=== PATIENT | male | born 1970 | race Caucasian/White ===

== ENCOUNTER 2024-07-31 22:04 | Emergency (ER) | payer OTHER ==
[~2024-07-31] VITALS: Ht 180.3 cm; Wt 81.6 kg
[2024-07-31 22:10] VITALS: TEMP 98.5
[2024-07-31 23:55] VITALS: PULSE 96; RESP 22; O2SAT 99
== END 2024-08-01 00:08 | disposition home or self-care (01) ==
LOC: ER 22:10
DX: M54.6 Pain in thoracic spine (principal); S63.591A Other specified sprain of right wrist, initial encounter; W17.89XA Other fall from one level to another, initial encounter; Y92.89 Other specified places as the place of occurrence of the external cause; K21.9 Gastro-esophageal reflux disease without esophagitis; F17.210 Nicotine dependence, cigarettes, uncomplicated
CPT/HCPCS: 99283

== ENCOUNTER 2024-09-25 17:06 | Emergency (ER) | payer OTHER ==
[~2024-09-25] VITALS: Ht 180.3 cm; Wt 81.6 kg
[2024-09-25 17:10] VITALS: PULSE 103; RESP 18; TEMP 98.3
[2024-09-25] MEDS ORDERED: ULTRAM 50MG50 MG PO (18:41)
[2024-09-25] MEDS: KETOROLAC TROMETHAMINE 60 MG/2 ML VIAL IM ONE (18:58)
[2024-09-25 19:32] VITALS: BP 148/108; PULSE 88; RESP 17; TEMP 98.9; O2SAT 98
== END 2024-09-25 19:36 | disposition home or self-care (01) ==
LOC: ER 18:31
DX: M25.512 Pain in left shoulder (principal); S42.292A Other displaced fracture of upper end of left humerus, initial encounter for closed fracture; X50.0XXA Overexertion from strenuous movement or load, initial encounter; Y93.E6 Activity, residential relocation; Y92.89 Other specified places as the place of occurrence of the external cause; K21.9 Gastro-esophageal reflux disease without esophagitis
CPT/HCPCS: 29240; 73030; 99283; J1885